=== PATIENT | male | born 1995 | race Caucasian/White ===

== ENCOUNTER → 2020-12-06 | Day surgery (SDC) | payer OTHER ==
--- NOTE | 2020-12-06 10:58 | NUR ---
PATIENT REPORTED THAT HE HAD HALF CUP OF COFFEE WITH SUGAR AND MILK AT 9 AM THIS MORNING. ANESTHESIA EVALUATED PATIENT AND CANCELLED THE CASE
== END | disposition home or self-care (01) ==
LOC: FAS 10:18
DX: K02.63 Dental caries on smooth surface penetrating into pulp (principal); K05.30 Chronic periodontitis, unspecified; Z53.09 Procedure and treatment not carried out because of other contraindication
CPT/HCPCS: J1100; J2405; J2704; J7120

== ENCOUNTER → 2021-02-14 | Day surgery (SDC) | payer OTHER ==
[2021-02-14 08:58] LABS: BASOPHIL 0.6 % (0-2); EOSINOPHIL 3.7 % (0-5); HCT 50.7 % (42.0-52.0); HGB 18.6 g/dl (13.2-18.0); LYMPHOCYTE 34.1 % (15-48); MCH 33.5 pg (25.0-31.0); MCHC 36.7 g/dL (32.0-36.0); MCV 91.2 fL (78.0-100.0); MONOCYTE 6.8 % (0-12); MPV 9.5 fL (6.0-9.5); NEUTROPHIL 54.6 % (41-80); NRBC 0; PLT 227 K/uL (150-400); RBC 5.56 M/uL (4.70-6.00); RDW 11.7 % (11.5-14.0); WBC 8.7 K/uL (4.0-10.5)
== END | disposition home or self-care (01) ==
LOC: FAS 07:57
PROVIDERS: Oral & Maxillofacial Surgery
DX: K02.63 Dental caries on smooth surface penetrating into pulp (principal); K04.7 Periapical abscess without sinus; F17.210 Nicotine dependence, cigarettes, uncomplicated
CPT/HCPCS: 36415; 85025; J1100; J1885; J2250; J2405; J2704; J7120